=== PATIENT | female | born 1985 | race African-American/Black ===

== ENCOUNTER 2019-12-04 22:35 | Inpatient (IN) | payer OTHER, SELFPAY ==
[~2019-12-04] VITALS: Ht 154.9 cm; Wt 81.6 kg
[2019-12-04] MEDS ORDERED: LR 1,000 ML IV SCH (22:39)
[2019-12-04] MEDS ORDERED: OXYTOCIN/0.9 % SODIUM CHLORIDE 1,000 ML IV SCH (22:39)
[2019-12-04] MEDS ORDERED: TERBUTALINE SULFATE 1 MG/ML VIAL SUBCUT ONE (22:45)
[2019-12-04] MEDS ORDERED: DINOPROSTONE 10 MG SUPP VG ONE (22:45)
[2019-12-04] MEDS ORDERED: NALOXONE HCL 0.4 MG/ML AMP (NARCAN) IVP PRN (22:45)
[2019-12-04 23:15] LABS: BASOPHILS # (AUTO) 0.1 K/uL (0.0-0.2); BASOPHILS % (AUTO) 0.8 % (0.0-2.0); EOSINOPHILS # (AUTO) 0.2 K/uL (0.0-0.4); EOSINOPHILS % (AUTO) 1.7 % (0.0-4.0); HEMATOCRIT 33.5 % (36-48); HEMOGLOBIN 11.3 g/dL (12.0-16.0); LYMPHOCYTES # (AUTO) 2.1 K/uL (1.0-5.5); LYMPHOCYTES % (AUTO) 20.4 % (20.5-51.5); MEAN CORPUSCULAR HEMOGLOBIN 29 pg (27-31); MEAN CORPUSCULAR HGB CONC 34 % (32-36); MEAN CORPUSCULAR VOLUME 85 fL (79.0-98.0); MONOCYTES # (AUTO) 0.8 K/uL (0.0-1.0); NEUTROPHILS % (AUTO) 69.1 % (40.0-70.0); PLATELET COUNT (AUTO) 297 K/uL (130-430); RED BLOOD CELL COUNT(AUTO) 3.96 MIL/uL (4.2-6.2); RED CELL DISTRIBUTION WIDTH 15.3 % (9.0-15.0); WHITE BLOOD COUNT (AUTO) 10.2 K/uL (4.8-10.8)
[2019-12-05 00:58] VITALS: BP_SYST 118
[2019-12-05] MEDS: MORPHINE SULFATE 10 MG/ML VIAL IVP PRN ×2 (08:20→12:53)
[2019-12-05] MEDS ORDERED: fentaNYL CITRATE/PF 100 MCG/2 ML AMP ONE (14:31)
[2019-12-05] MEDS ORDERED: ROPIVACAINE HCL/PF 0.2% 200 ML ONE (14:31)
[2019-12-05] MEDS ORDERED: LR 500 ML IV ONE (15:27)
[2019-12-05] MEDS ORDERED: FENT2mCg/mL-ROPIVA0.2%/NS EPID 200 ML EP SCH (15:30)
[2019-12-05] MEDS ORDERED: ePHEDrine sulfate 50 MG/ML VIAL IVP PRN (15:30)
[2019-12-05] MEDS ORDERED: AMPICILLIN SODIUM 2 GM in NS 100 ML IV ONE (23:15)
[2019-12-05] MEDS ORDERED: ACETAMINOPHEN 325 MG TABLET PO PRN (23:15)
[2019-12-05] MEDS ORDERED: AMPICILLIN SODIUM 2 GM VIAL ONE (23:33)
[2019-12-06] MEDS ORDERED: OXYTOCIN/0.9 % SODIUM CHLORIDE 1,000 ML IV ONE (01:37)
[2019-12-06] MEDS ORDERED: OXYTOCIN/0.9 % SODIUM CHLORIDE 1,000 ML IV SCH (01:37)
[2019-12-06] MEDS ORDERED: HYDROcodone/ACETAMIN 5-325 MG TAB (NORCO/ VICODIN) PO PRN (01:45)
[2019-12-06] MEDS ORDERED: DIPH-TET-PERTUS Vaccine 0.5 ML VIAL (ADACEL) I.M. PRN (01:45)
[2019-12-06] MEDS ORDERED: MEASLES,MUMPS&RUBELLA VACC/PF 12500 UNIT/0.5 ML VIAL SUBQ PRN (01:45)
[2019-12-06] MEDS ORDERED: ANUSOL 1 EA SUPP.RECT (PREPARATION H) RC PRN (01:45)
[2019-12-06] MEDS ORDERED: DERMOPLAST SPRAY TP PRN (01:45)
[2019-12-06] MEDS ORDERED: WITCH HAZEL LEAF 1 MED.PAD MED.PAD TP PRN (01:45)
[2019-12-06] MEDS ORDERED: NALOXONE HCL 0.4 MG/ML AMP (NARCAN) IVP PRN (01:45)
[2019-12-06] MEDS ORDERED: SENNOSIDES/DOCUSATE SODIUM 1 TAB TABLET(SENOKOT-S) PO PRN (01:45)
[2019-12-06] MEDS ORDERED: HYDROCORTISONE 0.5%, 28.35 GM TOPICAL CREAM TP PRN (01:45)
[2019-12-06] MEDS ORDERED: RHO(D) IMMUNE GLOBULIN/MALTOSE 1500 UNITS/1.3 ML (WINHRO) IM PRN (01:45)
[2019-12-06] MEDS ORDERED: OXYCODONE/ACETAMINOPHEN 5-325 TABLET PO PRN (01:45)
[2019-12-06] MEDS ORDERED: LANOLIN 7 GM OINT. TP PRN (01:45)
[2019-12-06] MEDS ORDERED: AMPICILLIN SODIUM 1 GM in NS 50 ML IV SCH (03:00)
[2019-12-06] MEDS: IBUPROFEN 600 MG TABLET PO SCH ×4 (05:56→23:41)
[2019-12-06] MEDS: DOCUSATE SODIUM 100 MG CAPSULE PO PRN (08:56)
[2019-12-06] MEDS: OXYCODONE/ACETAMINOPHEN 5-325 TABLET PO PRN ×2 (08:57→22:05)
[2019-12-07] MEDS: DOCUSATE SODIUM 100 MG CAPSULE PO PRN (05:50)
[2019-12-07] MEDS: IBUPROFEN 600 MG TABLET PO SCH (05:50)
[2019-12-07 07:45] LABS: HEMATOCRIT 27.4 % (36-48)
== END 2019-12-07 10:45 | disposition home or self-care (01) | DRG 560 ==
LOC: SPU 22:35
PROVIDERS: ADMIT Obstetrics & Gynecology; ATTEND Obstetrics & Gynecology
PROC: 10E0XZZ Delivery of Products of Conception, External Approach (ICD-10-PCS; principal; 2019-12-06)
PROC: 3E033VJ Introduction of Other Hormone into Peripheral Vein, Percutaneous Approach (ICD-10-PCS; 2019-12-06)
PROC: 3E0P7VZ Introduction of Hormone into Female Reproductive, Via Natural or Artificial Opening (ICD-10-PCS; 2019-12-06)
PROC: 0W8NXZZ Division of Female Perineum, External Approach (ICD-10-PCS; 2019-12-06)
PROC: 3E0R3BZ Introduction of Anesthetic Agent into Spinal Canal, Percutaneous Approach (ICD-10-PCS; 2019-12-06)
PROC: 00HU33Z Insertion of Infusion Device into Spinal Canal, Percutaneous Approach (ICD-10-PCS; 2019-12-06)
DX: O80 Encounter for full-term uncomplicated delivery (principal); Z3A.40 40 weeks gestation of pregnancy; Z37.0 Single live birth; Z20.828 Contact with and (suspected) exposure to other viral communicable diseases
CPT/HCPCS: 36415; 81002-TC; 85018-TC; 85025; 86592; 86886; 86900; 86901; 90715; 94760; J0290; J2270; J2590; J3010; J7120